=== PATIENT | female | born 1990 | race Caucasian/White ===

== ENCOUNTER 2016-09-11 11:26 | Emergency (ER) | payer OTHER ==
[2016-09-11] MEDS ORDERED: NS 1,000 ML IV ONE (11:59)
[2016-09-11] MEDS ORDERED: ZOFRAN IV ONE (11:59)
[2016-09-11 12:09] LABS: URINE MICRO REVIEW NEEDED? NO; URINE SOURCE CLEAN CATCH
[2016-09-11 12:13] LABS: BILIRUBIN URINE NEGATIVE (NEGATIVE); BLOOD URINE NEGATIVE (NEGATIVE); COLOR YELLOW; GLUCOSE URINE NEGATIVE (NEGATIVE); LEUKOCYTES URINE LARGE (NEGATIVE); NITRITE URINE NEGATIVE (NEGATIVE); PROTEIN URINE TRACE mg/dL (NEGATIVE); TURBIDITY URINE CLEAR (CLEAR); UROBILINOGEN URINE NORMAL (NORMAL)
[2016-09-11 12:15] LABS: BASO% 0.1 % (0.0-0.8); EOS# 0.02 X1000 (0.0-0.7); EOS% 0.2 % (0.0-10.0); HEMATOCRIT 38.2 % (37.0-47.0); HEMOGLOBIN 12.6 g/dL (12.0-16.0); IMM GRAN# 0.02 X1000 (0.0-0.04); IMM GRAN% 0.2 % (0.0-0.5); LYMPH# 0.61 X1000 (1.2-3.4); LYMPH% 6.4 % (20.5-51.1); MANUAL DIFF NEEDED? NO; MCH 27.2 PG (27-31); MCV 82.5 FL (81-99); MONO# 0.31 X1000 (0.11-0.59); MONO% 3.2 % (1.7-9.3); MPV 10.5 FL (7.4-10.4); NEUT% 89.9 % (42.2-75.2); PLT 297 X1000 (130-400); RBC 4.63 XMIL (4.2-5.4)
[2016-09-11 12:15] LABS: UR EPITHELIAL CELLS <10 /HPF (<10); URINE BACTERIA 2+ /HPF; URINE CULTURE NEEDED? YES; URINE RBC <10 /HPF (<10)
[2016-09-11 12:46] LABS: AGAP 11; ALBUMIN 4.6 g/dL (3.5-5.0); ALKALINE PHOSPHATASE 70 U/L (32-104); AMYLASE 34 U/L (20-200); BUN 16 mg/dL (8-22); CALCIUM 8.6 mg/dL (8.8-10.2); CHLORIDE 97 mmol/L (98-107); COSMO 264; GOT 18 U/L (10-30); GPT 17 U/L (10-36); LIPASE 24 U/L (13-60); POTASSIUM 3.8 mmol/L (3.5-5.1); SODIUM 131 mmol/L (136-145); TCO2 23 mmol/L (25-35); TOTAL BILIRUBIN 0.56 mg/dL (0.20-1.00); TOTAL PROTEIN 7.4 g/dL (6.3-8.3)
[2016-09-11] MEDS ORDERED: SEPTRA DS PO ONE (13:09)
--- NOTE | 2016-09-11 13:16 | PROVIDER DOCUMENTATION ---
HPI-General Adult - General Chief Complaint: N/V/D Stated Complaint: VOMITING,DIARRHEA,FEVER,LEFT SIDE PAIN Time Seen by Provider: 09/11/16 11:59 Source: patient Allergies/Adverse Reactions: Patient Allergies Allergy/AdvReac Type Severity Reaction Status Date / Time No Known Allergies Allergy Verified 09/11/16 12:00 Home Medications: No Home Medications 09/11/16 - History of Present Illness -Gen Adult Nature of Presenting Problems: Pt is a 26 yof who came to the ED with a cc of N/V and diarrhea. Pt reports it started at 3 this morning. Pt reports she threw up five times. Location of Pain/Injury: reports: none Pain Radiation: reports: no radiation Quality of Pain: reports: none Onset/Duration: reports: this morning Timing: reports: still present Modifying Factors: improves with: vomiting Associated Symptoms: reports: diarrhea, vomiting Similar Symptoms Previously?: No Recently seen or treated by another doctor?: No Review of Systems - Adult - REVIEW OF SYSTEMS - ADULT Constitutional: reports: chills, fever. denies: fatique, weight gain Eyes: denies: blurred vision, double vision Ears, Nose, Mouth & Throat: reports: no symptoms reported Cardiovascular: reports: no symptoms reported Respiratory: denies: pleurisy, wheezing Gastrointestinal: reports: diarrhea, nausea, vomiting. denies: difficulty swallowing, frequent heartburn Genitourinary: denies: flank pain, hesitency Musculoskeletal: reports: no symptoms reported Integumentary: denies: itching, nail changes Neurological: reports: no symptoms reported Psychiatric: reports: no symptoms reported Endocrine: reports: no symptoms reported Hematologic/Lymphatic: reports: no symptoms reported Allergic/Immunologic: reports: no symptoms reported All Other Systems: Reviewed and Negative Past History - Adult - PAST MEDICAL HISTORY-ADULT Review of Records: reports: Old Records Reviewed, Nursing Assessment Review Major Childhood Illnesses: reports: denies history Cardiovascular: reports: denies history Respiratory: reports: asthma, sleep apnea Gastrointestinal: reports: denies history Obstetrical/Gynecological: reports: denies history Genitourinary: reports: denies history Musculoskeletal: reports: denies history Neurological: reports: denies history Endocrine/Immune: reports: denies history Other Conditions: reports: denies history - PRIOR SURGERIES/PROCEDURES Surgical/Procedure History: reports: tonsillectomy - IMMUNIZATION STATUS Childhood Immunizations: See Nurse Assessment Flu Vaccine: See Nurse Assessment - FAMILY HISTORY Family History: reviewed, not pertinent Physical Exam-General - PHYSICAL EXAM-ADULT Initial Vital Signs Reviewed: Yes - CONSTITUTIONAL General Appearance: alert, no apparent distress - EYES Eyes: PERRL/EOMI, pink conjunctivae - HEAD, EARS, NOSE, MOUTH & THROAT HENMT: normocephalic/atraumatic, moist mucous membranes, normal ENT inspection - NECK Neck: non-tender, full range of motion, normal inspection - RESPIRATORY Respiratory: chest non-tender, lungs clear, normal breath sounds - CARDIOVASCULAR Cardiovascular: normal peripheral pulses, regular rate, rhythm, no edema - GASTROINTESTINAL (ABDOMEN) Abdominal Exam: normal bowel sounds, non tender, soft - LYMPHATIC Lymphatic: no adenopathy - MUSCULOSKELETAL Back Exam: normal inspection, no CVA tenderness, no vertebral tenderness Extremity: normal range of motion, non-tender, normal gait - SKIN Integumentary: normal color, normal turgor, warm/dry - NEUROLOGIC Neurologic: grossly normal, no motor/sensory deficits - PSYCHIATRIC Psych/Mental Status: normal mood/affect, normal thought content, normal thought process, oriented x 3 Progress - PLAN OF CARE/RESULTS Progress/Plan/Lab Results: Vital Signs - 24 hr 09/11/16 11:28 Temperature 98.4 F Pulse Rate 108 H Respiratory 20 Rate Blood Pressure 108/68 O2 Sat by Pulse 100 Oximetry Orders Category Date Time Status Saline Loc DIRECTED Care 09/11/16 11:59 Active NPO Diet 09/11/16 11:59 Active RENAL STONE SEARCH [CT] Stat Exams 09/11/16 11:59 Taken AMYLASE [CHEM] Stat Lab 09/11/16 11:55 Completed CBC WITH ELECTRONIC DIFF [HEME] Stat Lab 09/11/16 11:55 Completed COMPREHENSIVE METABOLIC PANEL [CHEM] Stat Lab 09/11/16 11:55 Completed LIPASE [CHEM] Stat Lab 09/11/16 11:55 Completed TEST-URINE [PREG] Stat Lab 09/11/16 12:00 Completed URINALYSIS W/POSS RFLX CULT [URINALYSIS] Stat Lab 09/11/16 12:00 Completed URINE CULTURE [RM] Routine Lab 09/11/16 12:16 Received 0.9% Sodium Chloride Inj [Ns] 1,000 ml Med 09/11/16 11:59 Discontinued IV 999 mls/hr Ondansetron [Zofran] Med 09/11/16 11:59 Discontinued 8 mg IV NOW ONE Sulfamethoxazole/Tmp D.s. [Septra Ds] Med 09/11/16 13:09 Discontinued 1 each PO NOW ONE Laboratory Tests 09/11/16 09/11/16 09/11/16 11:55 11:55 12:00 WBC 9.58 RBC 4.63 Hgb 12.6 Hct 38.2 MCV 82.5 MCH 27.2 MCHC 33.0 RDW Std Deviation 14.1 Plt Count 297 MPV 10.5 H Immature Gran % (Auto) 0.2 Neut % (Auto) 89.9 H Lymph % (Auto) 6.4 L Bath % (Auto) 3.2 Eos % (Auto) 0.2 Baso % (Auto) 0.1 Immature Gran # (Auto) 0.02 Neut # (Auto) 8.61 H Lymph # (Auto) 0.61 L Bath # (Auto) 0.31 Eos # (Auto) 0.02 Baso # (Auto) 0.01 Sodium 131 L Potassium 3.8 Chloride 97 L Carbon Dioxide 23 L Anion Gap 11 BUN 16 Creatinine 0.7 Estimated GFR/1.73 m2 > 60 BUN/Creatinine Ratio 23 Glucose 102 Calculated Osmolality 264 Calcium 8.6 L Total Bilirubin 0.56 AST 18 ALT 17 Alkaline Phosphatase 70 Total Protein 7.4 Albumin 4.6 Globulin 2.8 Albumin/Globulin Ratio 1.6 Amylase 34 Lipase 24 Urine Source Urine Color Urine Turbidity Urine pH Ur Specific [place] Urine Protein Ur Glucose (Stick) Ur Ketones (Stick) Urine Blood Urine Nitrite Urine Bilirubin Urobilinogen Dipstick Urine Leukocytes Urine WBC (Auto) Urine RBC (Auto) U Epithel Cells (Auto) Urine Bacteria (Auto) Urine Test NEGATIVE 09/11/16 12:00 WBC RBC Hgb Hct MCV MCH MCHC RDW Std Deviation Plt Count MPV Immature Gran % (Auto) Neut % (Auto) Lymph % (Auto) Bath % (Auto) Eos % (Auto) Baso % (Auto) Immature Gran # (Auto) Neut # (Auto) Lymph # (Auto) Bath # (Auto) Eos # (Auto) Baso # (Auto) Sodium Potassium Chloride Carbon Dioxide Anion Gap BUN Creatinine Estimated GFR/1.73 m2 BUN/Creatinine Ratio Glucose Calculated Osmolality Calcium Total Bilirubin AST ALT Alkaline Phosphatase Total Protein Albumin Globulin Albumin/Globulin Ratio Amylase Lipase Urine Source CLEAN CATCH Urine Color YELLOW Urine Turbidity CLEAR Urine pH 7.0 Ur Specific [place] 1.030 Urine Protein TRACE A Ur Glucose (Stick) NEGATIVE Ur Ketones (Stick) NEGATIVE Urine Blood NEGATIVE Urine Nitrite NEGATIVE Urine Bilirubin NEGATIVE Urobilinogen Dipstick NORMAL Urine Leukocytes LARGE A Urine WBC (Auto) 10-20 A Urine RBC (Auto) <10 U Epithel Cells (Auto) <10 Urine Bacteria (Auto) 2+ Urine Test - CT/MRI 1 CT Study: Abdomen (1. No obstructing renal stones. No hydro. 2. Normal appendix 3. [place] nonspecific mesenteric, probably reactive) Departure - Departure Time of Disposition Order: 13:16 DIAGNOSIS: Nausea & vomiting Qualifiers: Vomiting type: unspecified Vomiting Intractability: unspecified Qualified Code( s): R11.2 - Nausea with vomiting, unspecified Disposition: HOME 01 Certified Medical Emergency: Emergent Condition: Good Attestation - Scribe Verification/Attestation Scribe:: Shandra Vela Acting as Scribe for:: Imelda Cabezas Scribe documention review:: This chart was documented by a scribe and accurately reflects the service the provider performed and the decisions made by the provider.
--- NOTE | 2016-09-11 13:23 | Diag Imaging Result Document ---
PROCEDURE NAME: RENAL STONE SEARCH - 09/11/2016 CT ABDOMEN AND PELVIS WITHOUT CONTRAST/RENAL STONE PROTOCOL: COMPARISON: 02/08/2015. FINDINGS: There appears to be a punctate nonobstructing intrarenal stone at the lower pole of the left kidney. There are no ureteral stones, and there is no hydronephrosis. The urinary bladder is slightly distended and is grossly unremarkable. The appendix is normal. There are shotty nonspecific mesenteric lymph nodes that are borderline prominent. They are similar to the previous study but may be slightly larger, probably reactive. This may indicate mesenteric adenitis. No focal inflammatory changes, free abdominal gas, or free fluid is identified, otherwise. The remainder of the solid viscera of the abdomen and pelvis and the remainder of the GI tract is essentially unremarkable. IMPRESSION: 1. Miniscule nonobstructing intrarenal stone on the left but no ureteral stones or signs of acute obstructive uropathy. 2. Shotty nonspecific mesenteric lymph nodes.
[2016-09-11 13:45] VITALS: BP 100/54
== END 2016-09-11 13:44 | disposition home or self-care (01) ==
LOC: ED 11:26
DX: R11.2 Nausea with vomiting, unspecified (principal); R19.7 Diarrhea, unspecified; R50.9 Fever, unspecified
CPT/HCPCS: 74176; 80053; 81001; 81025; 82150; 83690; 85025; 87088; 96374; J2405; J7030